=== PATIENT | female | born 1970 | race Caucasian/White ===

== ENCOUNTER → 2020-06-29 10:05 | Outpatient (REF) | payer OTHER, SELFPAY | LOC: ANHLAB 10:05 | PROVIDERS: PCP Family Medicine; Visit Provider Nurse Practitioner | DX: L57.0 Actinic keratosis (principal) | CPT/HCPCS: 88305 ==

== ENCOUNTER 2020-07-24 01:49 | Outpatient (CLI) | payer OTHER, SELFPAY ==
[2020-07-24 17:59] LABS: SARS-CoV-2 RNA PCR Negative
== END 2020-07-24 01:50 | disposition home or self-care (01) ==
LOC: ANHCOVIDDT 01:49
PROVIDERS: PCP Family Medicine; Visit Provider Surgery Plastic and Reconstructive Surgery
DX: Z01.812 Encounter for preprocedural laboratory examination (principal); Z20.828 Contact with and (suspected) exposure to other viral communicable diseases
CPT/HCPCS: 87635; C9803; U0003

== ENCOUNTER 2020-07-27 01:04 | Day surgery (SDC) | payer OTHER, SELFPAY ==
[2020-07-13 11:33] VITALS: BMI 29.8
--- NOTE | 2020-07-25 10:18 | WPDANESEPP ---
Anes - Eval Pre Procedure Procedure: Operation Date: 07/27/20 08:30 Proposed Procedures p Right Breast Fat Grafting - Manny Kirby MD Date/Time: 07/25/20 10:18 Pre Op Diagnosis: hx breast CA Patient Data Age: 49 Gender: F Height: 1.68 m Weight: 83.91 kg Allergies Allergy/AdvReac Type Severity Reaction Status Date / Time fluoxetine Allergy Unknown Palpitation Verified 07/13/20 12:49 s methylprednisolone Allergy Unknown SEVERE Verified 07/13/20 12:49 LOCAL REACTION TO IM, ZAIN. IV citalopram AdvReac Unknown CHEST Verified 07/13/20 12:49 PALPATIONS/EXACERBATES RA prednisone AdvReac Unknown CHEST Verified 07/13/20 12:49 PAIN/ HEART PALPATIONS-WITH PO ONLY Home Medications Medication Instructions Recorded Confirmed Type albuterol sulfate 90 mcg/actuation 1 puff INHALATION Q4H PRN 10/29/19 07/13/20 History aerosol inhaler oxycodone 10 mg tablet 10 mg PO Q6H PRN #90 tablet 02/17/20 07/13/20 Rx ondansetron HCl 4 mg tablet 4 mg PO Q8H PRN #20 tablet 03/23/20 07/13/20 Rx estradiol [Divigel] 1.25 mg TOPICAL DAILY 07/13/20 07/13/20 History hydroxychloroquine 200 mg PO QPM 07/13/20 07/13/20 History sulfasalazine 500 mg PO BID 07/13/20 07/13/20 History hydrocodone 5 mg-acetaminophen 325 1 tablet PO Q6H PRN #15 tablet 07/14/20 07/14/20 Rx mg tablet ondansetron HCl 4 mg tablet 4 mg PO Q6H PRN #30 tablet 07/14/20 Rx Patient hx anesthesia problems: none Family hx anesthesia problems: none PMFSH Past Medical History Medical History (Updated 07/25/20 @ 10:19 by Ciro Gallardo CRNA) Emphysema lung Surgical History Surgical History History of arthroscopic surgery of shoulder History of breast reconstruction History of hysterectomy History of tonsillectomy Family History Family History Grandparent Hypertension Family history of coronary artery disease Diabetes mellitus Mother Hypertension Family history of malignant neoplasm of thyroid Sibling Family history of diabetes mellitus in first degree relative Hypertension Father Family history of chronic obstructive pulmonary disease Social History Social History Smoking status: Never smoker Alcohol intake: never Spiritual care concerns: No Exam Day of Procedure 07/25/20 10:18
[2020-07-27] VITALS (8 sets, daily range): BP systolic 101–116; BP diastolic 53–66; PULSE 54–70; RESP 10–20; TEMP 36.1–36.5; O2SAT 98–100
--- NOTE | 2020-07-27 07:03 | WPDHPUPDATE1 ---
History and Physical Update Update Date/Time: 07/27/20 07:03 History and Physical has been reviewed, including an updated exam of the patient. There are NO changes in the patient's condition. Risks, benefits, and alternatives have been discussed and questions answered. Patient agrees to proceed with procedure.
[2020-07-27 07:15] LABS: Urine Cotinine NEGATIVE
[2020-07-27] MEDS: LACTATED RINGERS 1,000 ML 30 ML IV CONT ×2 (07:50→09:30)
--- NOTE | 2020-07-27 07:53 | WPDANESEPPF ---
Anes - Initial Pre Proc Eval Procedure: Operation Date: 07/27/20 08:30 Proposed Procedures p Right Breast Fat Grafting - Manny Kirby MD Date/Time: 07/27/20 07:53 Surgeon: Manny Kirby MD Pre Op Diagnosis: hx breast CA Patient Data Age: 49 Gender: F Height: 1.68 m Weight: 83.91 kg Allergies Allergy/AdvReac Type Severity Reaction Status Date / Time fluoxetine Allergy Unknown Palpitation Verified 07/13/20 12:49 s methylprednisolone Allergy Unknown SEVERE Verified 07/13/20 12:49 LOCAL REACTION TO IM, ZAIN. IV citalopram AdvReac Unknown CHEST Verified 07/13/20 12:49 PALPATIONS/EXACERBATES RA prednisone AdvReac Unknown CHEST Verified 07/13/20 12:49 PAIN/ HEART PALPATIONS-WITH PO ONLY Home Medications Medication Instructions Recorded Confirmed Type albuterol sulfate 90 mcg/actuation 1 puff INHALATION Q4H PRN 10/29/19 07/27/20 History aerosol inhaler oxycodone 10 mg tablet 10 mg PO Q6H PRN #90 tablet 02/17/20 07/27/20 Rx ondansetron HCl 4 mg tablet 4 mg PO Q8H PRN #20 tablet 03/23/20 07/27/20 Rx estradiol [Divigel] 1.25 mg TOPICAL DAILY 07/13/20 07/27/20 History hydroxychloroquine 200 mg PO QPM 07/13/20 07/27/20 History sulfasalazine 500 mg PO BID 07/13/20 07/27/20 History hydrocodone 5 mg-acetaminophen 325 1 tablet PO Q6H PRN #15 tablet 07/14/20 07/14/20 Rx mg tablet ondansetron HCl 4 mg tablet 4 mg PO Q6H PRN #30 tablet 07/14/20 Rx melatonin 30 mg PO HS PRN 07/27/20 07/27/20 History Laboratory Tests 07/27/20 06:58 Cotinine Negative Patient hx anesthesia problems: none Family hx anesthesia problems: none PMFSH Past Medical History Medical History (Updated 07/27/20 @ 07:54 by Clif Collier, ) Emphysema lung Frequent episodes of bronchitis GERD (gastroesophageal reflux disease) Rheumatoid arthritis Surgical History Surgical History History of arthroscopic surgery of shoulder History of breast reconstruction History of hysterectomy History of tonsillectomy Family History Family History Grandparent Hypertension Family history of coronary artery disease Diabetes mellitus Mother Hypertension Family history of malignant neoplasm of thyroid Sibling Family history of diabetes mellitus in first degree relative Hypertension Father Family history of chronic obstructive pulmonary disease Social History Social History Smoking status: Never smoker Alcohol intake: never Spiritual care concerns: No Anes - Eval Final PreProcedure Day of Procedure 07/27/20 07:53 Patient weight: overweight Heart: regular rate and rhythm Lungs: clear to auscultation and normal air movement Airway: Mallampati scale class II Neurological: alert and oriented Last oral intake: >/= 8 hours ASA classification: III Emergent: no Anesthetic plan: proceed Anesthesia type and monitoring: general LMA and standard monitoring Informed Consent: The patient's anesthetic plan and its attendant risks and benefits were discussed with the patient/family/POA. Questions were solicited and answers provided to the satisfaction of the patient/family/POA.
[2020-07-27] MEDS: SCOPOLAMINE 1.5 MG PATCH TRANSDERM (08:10)
[2020-07-27] MEDS: FAMOTIDINE 20 MG/2 ML VIAL IV PUSH (08:15)
[2020-07-27] MEDS: ceFAZolin 2 GM/D5W 50 ML 2 GM/50 ML BAG IVPB (08:32)
--- NOTE | 2020-07-27 09:39 | PM.PROC ---
Procedure Note - Detailed Date of procedure: 07/27/20 Pre-op diagnosis: hx breast CA Bilateral acquired breast deformity Post-op diagnosis: same Procedure performed: breast reconstruction by the method using fat grafting right breast Description of procedure: Risks, benefits, alternatives were discussed in extensive detail. I want her to be very realistic about the risks involved as well as expectations. She is wanting to address a small area that is got a significant depression on the right breast. After hearing her options she wants to proceed with fat grafting. She understands we will exchange the implant if there is any recur obvious injury. There is always the risk of unintentional injury to the implant we may have to return for another procedure for implant exchange and treatment if there was rupture of the implant. All questions answered to her satisfaction and consent obtained. She was marked in the preoperative holding area with her verification. She was taken to the operating room placed supine on the operating room table. Anesthesia provided by anesthesiology and prepped and draped in a standard sterile fashion. Surgical time-out was taken. Did a thorough abdominal examination. Using a 14 gauge needle and made a puncture site at her umbilicus. I tumesced with a tumescent solution. Once adequate time for hemostasis using a 3 mm multi hole cannulated completed suction lipectomy of this area for 250 cc into a gravity separation device. We gave adequate time for separation adipose tissue. I used a 14 gauge needle to make 2 stab incisions at the area that had been marked out on the breast. I infiltrated 18 cc of total volume adipose tissue which gave her a much improved contour in this area with an improved rolling pinch. There was no evidence of implant injury. Dressing was placed. She has taken the PACU without difficulty. All instrument sponge counts were correct at the end the case. Anesthesia: GLMA Surgeon: Manny Kirby MD Estimated blood loss (mL): 5 Drains: No Packing: No Pathology: none sent Complications: No immediate complications Condition: stable
[2020-07-27] MEDS: fentaNYL CITRATE INJ (*CRX) 100 MCG/2 ML VIAL 25 MCG IV PUSH ×3 (09:50→10:35)
[2020-07-27] MEDS: oxyCODONE HCL (*CRX) 5 MG TAB IR PO (10:45)
== END 2020-07-27 11:25 | disposition home or self-care (01) ==
PROVIDERS: PCP Family Medicine; Visit Provider Surgery Plastic and Reconstructive Surgery
PROC: (CPT 15769; principal; 2020-07-27 08:30)
DX: Z42.1 Encounter for breast reconstruction following mastectomy (principal); N64.89 Other specified disorders of breast; Z85.3 Personal history of malignant neoplasm of breast; Z98.82 Breast implant status; Z79.899 Other long term (current) drug therapy
CPT/HCPCS: 19366; 80307; A9270; C9290; J0171; J0690; J2250; J2370; J2405; J2704; J3010; J7120

== ENCOUNTER → 2023-02-05 14:10 | Outpatient (CLI) | payer OTHER, SELFPAY ==
--- NOTE | ~2023-02-05 | US_ITS ---
US thyroid INDICATION: Neck mass. TECHNIQUE: Real-time sonographic images of the thyroid gland were obtained. COMPARISON: Localized neck swelling. FINDINGS: The right thyroid lobe measures 4.2 x 1.7 x 1.5 cm. The left thyroid lobe measures 4 x 1.1 x 1.3 cm. There is normal echotexture and echogenicity throughout the thyroid gland. In the right lo be there is a 5 mm oval circumscribed hypoechoic mass which appears cystic, hypoechoic, wider than ta ll, smoothly marginated without punctate echogenic foci, TR 2, not suspicious. In the left lobe there is a 3 mm hypoechoic mass which is partially cystic, hypoechoic, wider than tall, smoothly marginate d without echogenic foci, TR 3, likely benign. Normal vascular flow is present. IMPRESSION: 1. Small bilateral thyroid nodules measuring 5 mm or less, likely benign. Reviewed, dictated and finalized at location A.
== END ==
PROVIDERS: PCP Family Medicine; Visit Provider Nurse Practitioner Family
DX: R22.1 Localized swelling, mass and lump, neck (principal); E04.2 Nontoxic multinodular goiter
CPT/HCPCS: 76536

== ENCOUNTER 2023-05-01 11:43 | Outpatient (CLI) | payer OTHER, SELFPAY ==
--- NOTE | ~2023-05-01 | XR_ITS ---
Clinical Indication: Shortness of breath PA and lateral views of the chest: Comparison: 02/18/2014 Findings: The lungs are clear, without evidence of focal consolidation or pleural effusion. Cardiome diastinal silhouette is within normal limits. Bones and soft tissues are unremarkable. Impression: Normal chest. Reviewed, dictated and finalized at [facility]. Impression: Normal chest.
== END 2023-05-01 11:44 | disposition home or self-care (01) ==
LOC: ANHIMG 11:45
PROVIDERS: PCP Family Medicine; Visit Provider Nurse Practitioner Family
DX: R06.02 Shortness of breath (principal)
CPT/HCPCS: 71046

== ENCOUNTER → 2023-08-17 12:41 | Outpatient (CLI) | payer OTHER, SELFPAY ==
--- NOTE | ~2023-08-17 | US_ITS ---
EXAMINATION: US thyroid DATE: 08/17/2023 13:15 INDICATION: Nontoxic single thyroid nodule. TECHNIQUE: Multiple ultrasound images of the thyroid were obtained. COMPARISON: Ultrasound 02/05/2023 FINDINGS: The right thyroid lobe measures 4.2 x 1.3 x 1.3 cm. The left thyroid lobe measures 4.3 x 1.1 x 1.3 c m. In the left thyroid lobe, there is a 3 mm nodule. In the right thyroid lobe, there is a 5 mm katty d, very hypoechoic, wider than tall nodule with smooth margin without echogenic foci (TI-RADS TR4). I n the right thyroid lobe, there is a 1 mm nodule. IMPRESSION: 1. Small thyroid nodules, likely not clinically significant. No follow-up is needed. Reviewed, dictated and finalized at location E. IMPRESSION: 1. Small thyroid nodules, likely not clinically significant. No follow-up is ne eded.
--- NOTE | ~2023-08-17 | US_ITS ---
US breast LT limited DATE: 08/17/2023 13:01 INDICATION: Palpable left breast lump at 2:00 10 cm from nipple. History of bilateral mastectomy with reconstruction, with second set of implants TECHNIQUE: Ultrasound at area of complaint at 2:00 10 cm from nipple COMPARISON: None FINDINGS: Left breast implant is noted. No suspicious mass or shadowing is detected at the area of cl inical complaint at 2:00 10 cm from nipple. IMPRESSION: Negative BI-RADS Category 1: Negative Reviewed, dictated and finalized at Location [facility]. Reviewed, dictated and finalized at location A.
== END ==
PROVIDERS: PCP Nurse Practitioner Family; Visit Provider Nurse Practitioner Family
DX: E04.2 Nontoxic multinodular goiter (principal); N63.20 Unspecified lump in the left breast, unspecified quadrant; R92.8 Other abnormal and inconclusive findings on diagnostic imaging of breast; Z90.13 Acquired absence of bilateral breasts and nipples
CPT/HCPCS: 76536; 76642

== ENCOUNTER 2023-11-21 10:49 | Outpatient (CLI) | payer OTHER, SELFPAY ==
--- NOTE | 2023-11-21 11:01 | ECG_ITS ---
Measurements Intervals [employer] Rate: 75 P: 65 DC: 203 QRS: 64 QRSD: 89 T: 36 QT: 389 QTc: 436 Interpretive Statements SINUS RHYTHM WITH SINUS ARRHYTHMIA NORMAL ECG NO PREVIOUS ECG AVAILABLE FOR COMPARISON Electronically Signed On 11-21-2023 11:10:52 FRONT TENDER by Altaf Oliva D.O.
== END 2023-11-21 10:50 | disposition home or self-care (01) ==
LOC: ANHCARD 10:51
PROVIDERS: PCP Family Medicine; Visit Provider Nurse Practitioner Family
DX: R07.9 Chest pain, unspecified (principal)
CPT/HCPCS: 93005

== ENCOUNTER 2024-02-07 09:53 | Outpatient (CLI) | payer OTHER, SELFPAY ==
--- NOTE | ~2024-02-07 | MR_ITS ---
MR breast BI wo/w con, MR breast BI wo/w con 02/08/2024 14:08 CDT INDICATION: Mass by clinical examination. Breast implants. History of breast cancer status post recon struction surgery. TECHNIQUE: MRI of the breasts perform using standard protocol pre-and post IV contrast with the follo wing sequences: Axial T2 STIR, axial T1, axial vibrant T1 with fat suppression precontrast and multip hasic postcontrast. 14 cc MultiHance administered intravenously. COMPARISON: Left breast ultrasound dated 08/17/2023 FINDINGS: There are no abnormalities on the precontrast sequences. There is mild background parenchym al enhancement. No enhancing lesions following contrast administration. No areas of enhancement kalyan ting threshold criteria on CAD analysis. No evidence of signal abnormalities in the axillary or inte rnal mammary node distributions. LEFT BREAST: No signal abnormalities on precontrast sequences. There is mild background parenchymal enhancement. No enhancing lesions following contrast administration. No areas of enhancement meeti ng threshold criteria on CAD analysis. No evidence of signal abnormalities in the axillary or inter nal mammary node distributions.] There are bilateral silicone implants. There is subcapsular line sign present along the lateral joya n of the right breast implant, consistent with intracapsular implant rupture. No evidence for left br east implant rupture. IMPRESSION: 1: Right breast: Negative. No evidence of malignancy. BI-RADS category 1. Recommend annual mammo graphy follow-up. 2: Left breast: Negative. No evidence of malignancy. BI-RADS category 1. Recommend annual mammogr aphy follow-up. 3: Probable intracapsular implant rupture of the right breast implant. No evidence for extracapsular rupture. Follow-up MRI may be useful for supplementing mammographic evaluation as clinically indicated. Reviewed, dictated and finalized at location B. IMPRESSION: 1: Right breast: Negative. No evidence of malignancy. BI-RADS category 1. Recommend annual mammography follow-up. 2: Left breast: Negative. No evidence of malignancy. BI-RADS category 1. Re commend annual mammography follow-up. 3: Probable intracapsular implant rupture of the right breast implant. No evide nce for extracapsular rupture. Follow-up MRI may be useful for supplementing mammographic evaluation as clinic ally indicated.
== END 2024-02-07 09:54 | disposition home or self-care (01) ==
PROVIDERS: PCP Family Medicine; Visit Provider Surgery Plastic and Reconstructive Surgery
DX: N63.10 Unspecified lump in the right breast, unspecified quadrant (principal); N63.20 Unspecified lump in the left breast, unspecified quadrant; Z98.82 Breast implant status; Z85.3 Personal history of malignant neoplasm of breast
CPT/HCPCS: 77049; A9577; C8908

== ENCOUNTER 2024-02-08 11:29 | Outpatient (CLI) | payer OTHER, SELFPAY | END 2024-02-08 11:30 | disposition home or self-care (01) | PROVIDERS: PCP Family Medicine; Visit Provider Surgery Plastic and Reconstructive Surgery | DX: N63.0 Unspecified lump in unspecified breast (principal) | CPT/HCPCS: 99199; 77049; C8908 ==

== ENCOUNTER 2024-04-23 02:56 | Day surgery (SDC) | payer OTHER, SELFPAY ==
[2024-04-17 15:11] VITALS: BMI 27.0
--- NOTE | 2024-04-17 15:18 | PC.NURSE ---
Report to the Outpatient Waiting Room, entrance under the green pavilion located off [facility], at time _0715_ on date _[id number]_. Planned Procedure Time: _0915_. Time changes happen often and if your time is changed the preop area will call you the afternoon before. - You and your visitor will be asked to self-screen and do not enter if you have any COVID symptoms. - A mask is optional within the hospital at this time. - No food or drink from midnight until time of surgery Take the following medications with a SIP of water the morning of surgery: ___Gabapentin and if needed pain medication DO NOT STOP ANY OF YOUR OTHER PRESCRIPTION MEDICATIONS PRIOR TO SURGERY ?EXCEPT THE FOLLOWING Medications to discontinue per physician __Ozempic Date to take last dose__Skip today's dose until after surgery. Please no make-up, nail croatian, hairspray, perfume, deodorant, or body powder the day of surgery. No jewelry (including any body piercings) or valuables the day of surgery, leave them at home. Please take a shower or bath the night before, or the morning of, surgery with an antibacterial soap. Wear comfortable, loose fitting clothing. - Jewelry must be removed prior to entering the operating room. Rings and piercings that are not removed may be cut off. - The hospital will not accept responsibility for valuables. - Please leave all valuables, including medications, at home the day of surgery. If you are going home after surgery, a licensed septic pump truck driver must drive you home. - NO public transportation without another adult if you receive anesthesia. - We recommend that an adult stay with you for 24 hours following discharge. - We also recommend that you do not drive, make important decision, drink alcoholic beverages, or take any drugs that were not prescribed by your health care provider for at least 24 hours after your discharge time. Follow any additional instructions given to you from your surgeon. If you or anyone in your household have experienced Covid symptoms in the past week, please notify your surgeon or the nurse liaison at the phone number below for possible testing. Telephone instructions given to _Nora__and asked if any additional questions and then verbalized understanding. Patient advised to call surgeon office or pre surgery nurse liaison [phone] if any additional questions.
[2024-04-23] VITALS (10 sets, daily range): BP systolic 95–137; BP diastolic 49–68; PULSE 60–87; RESP 15–23; TEMP 35.9–37.3; O2SAT 95–100
--- NOTE | 2024-04-23 06:56 | WPDHPUPDATE1 ---
History and Physical Update Update Date/Time: 04/23/24 06:56 Patient seen and examined in pre-operative holding area. No interval change in medical history or symptoms. Patient recalls previous discussion of benefits and alternatives to procedure. Continues to desire to proceed with bilateral breast silicone implant exchange, capsulectomy and left breast mass excision. Reviewed procedure, post-op expectations and risks including but not limited to bleeding, infection, injury to tendon/nerve/vessel, decreased hand function, stiffness, RSD, no change or worsening of symptoms, device failure, capsular contracture. I discussed the possible use of assistants and their participation in the case. Patient stated understanding and signed the consent form wishing to proceed.
--- NOTE | 2024-04-23 06:57 | W.PM.PROC2 ---
Procedure Note - Detailed Date of Procedure 04/23/24 Pre-op Diagnosis acquored absence bilateral breasts. complication right breast implant Post-op Diagnosis Same Procedure Performed bilateral breast implant exchange, bilateral capsulectomy and left breast mass excision Surgeon Hakeem Valenzuela MD Anesthesia General Description of Procedure Patient was seen in the preoperative holding area where the breasts were marked consent form signed. She was taken back to the operating room placed on the table in a supine position. Time-out was performed with Anesthesia, surgeon, and staff agree on patient's name, site, and surgery to be performed. SCDs were placed on the lower extremities and inflated. Antibiotics were given IV. After general anesthesia was administered the breasts were prepped and draped in usual sterile fashion. I took my attention 1st to the right breast where I used a 15 blade scalpel to make an incision around her previous supra-areolar incision scar and going around at the area of thinned skin laterally in an ellipse. This was done through skin and dermis. Bovie cautery was then used to resect this painful scar and area of tissue going down to the breast capsule. Once reaching the breast capsule I proceeded with dissection with Bovie cautery superior and inferior to elevate skin flaps and prevent direct line scar. I proceeded with making an incision in the capsule with Bovie cautery. I removed the right breast implantWhich appeared intact. Lighted retractors were used to examine the capsule and a large part thickened irregular capsule was noted along the chest wall lateral breast cavity. I proceeded with performing capsulectomy right breast and sent this specimen to pathology. I irrigated with antibiotic irrigation hemostasis with Bovie cautery. Using a 2-0 Vicryl I performed capsulorrhaphy on this lateral aspect of the capsule to also help narrow the pocket. No further masses or irregularities were appreciated. next I took my attention to the left breast. I proceeded with making an elliptical incision around her previous mastectomy scar the lateral aspect of the breast through skin and dermis with a 15 blade scalpel. The scar was excised. I used Bovie cautery to dissect through subcutaneous tissue down to the breast capsule I elevated superiorly on the capsule to prevent a direct line scar. I made an incision capsule and removed the left breast implant which appeared intact. Using lighted retractors I proceeded with triangulating the palpable tender left breast mass in the upper outer quadrant. this appeared to be abutting the capsule. I proceeded with using Bovie cautery to excise this portion of thickened capsule in the superior lateral quadrant and then continued with dissection around the suspected palpable mass in the subcutaneous tissue.. After this was completed I irrigated with antibiotic solution and hemostasis with Bovie cautery. I repaired this capsular defect with 2-0 Vicryl suture. Further inspection noted significantly hard and calcified appearing capsule on the inferior aspect of the left breast pocket. I proceeded with extensive capsulectomy of this irregular capsular tissue. This was sent to pathology. Next I irrigated with antibiotic irrigation. Examination with lighted retractors noted no further masses or areas of concern. I proceeded with placing a temporary 800 cc Sizer which appeared to be an adequate replacement to her previously removed implant. it was noted that her right breast subcutaneous tissue did appear to be occur as well as her pectoralis major muscle and I proceeded with placing a 770 cc Sizer on the right breast. This had reasonable symmetry though the right breast was still notably wider due to this implant size And the excess tissue on the right breast. Next I proceeded with placing the implant on the left breast. The Sizer was removed. I irrigated with antibiotic irrigat
[2024-04-23] MEDS: LACTATED RINGERS 1,000 ML 30 ML IV CONT ×2 (07:55→10:51)
--- NOTE | 2024-04-23 08:38 | WPDANESEPPF ---
Anes - Initial Pre Proc Eval Procedure: Operation Date: 04/23/24 09:15 Proposed Procedures p Bilateral Breast Implant Exchange, Right Breast Capsulectomy, Left Breast Mass Excision - Hakeem Valenzuela MD Date/Time: 04/23/24 08:38 Surgeon: Hakeem Valenzuela MD Pre Op Diagnosis: left breast mass,acquired absence breast &nipple Patient Data Age: 53 Gender: F Height: 1.68 m Weight: 76.5 kg Last Vital Signs Temp 36.4 C 04/23/24 08:03 Pulse 76 04/23/24 08:03 Resp 16 04/23/24 08:03 BP 106/49 L 04/23/24 08:03 Pulse Ox 98 04/23/24 08:03 O2 Del Method Room Air 04/23/24 08:03 Allergies Allergy/AdvReac Type Severity Reaction Status Date / Time fluoxetine Allergy Unknown Palpitation Verified 04/23/24 07:54 s methylprednisolone Allergy Unknown SEVERE Verified 04/23/24 07:54 LOCAL REACTION TO IM, ZAIN. IV citalopram AdvReac Unknown CHEST Verified 04/23/24 07:54 PALPATIONS/EXACERBATES RA prednisone AdvReac Unknown CHEST Verified 04/23/24 07:54 PAIN/ HEART PALPATIONS-WITH PO ONLY Home Medications Medication Instructions Recorded Confirmed Type diphenhydramine HCl 25 mg tablet 25 mg PO QHS PRN Insomnia 10/18/22 04/17/24 History (Benadryl Allergy) semaglutide 2 mg/dose (8 mg/3 mL) 2 mg subcut WEEKLY 07/31/23 04/17/24 History subcutaneous pen injector (Ozempic) albuterol sulfate 90 mcg/actuation 1 puff inhalation Q4H PRN 12/01/23 04/17/24 Rx aerosol inhaler Shortness Of Breath #8.5 grams hydroxyzine HCl 50 mg tablet 50 mg PO BID PRN itching #60 tabs 02/28/24 04/17/24 Rx melatonin 10 mg tablet 30 mg PO HS PRN Insomnia #60 tabs 02/28/24 04/17/24 Rx ondansetron HCl 4 mg tablet 4 mg PO Q6H PRN nausea and 02/28/24 04/17/24 Rx vomiting #30 tabs gabapentin 300 mg capsule 300 mg PO TID #90 caps 03/26/24 04/17/24 Rx oxycodone 10 mg tablet 10 mg PO Q8H PRN pain #90 tabs 03/31/24 04/17/24 Rx Patient hx anesthesia problems: other (heartburn) Family hx anesthesia problems: post op nausea/vomiting Results Review: All pre-operative results and documents have been reviewed as part of the pre-operative evaluation. COUNTS INCLUDE 234 BEDS AT THE [facility] Past Medical History Medical History Autoimmune dermatitis BMI 25.0-25.9,adult COVID-19 Emphysema lung Frequent episodes of bronchitis GERD (gastroesophageal reflux disease) Rheumatoid arthritis Surgical History Surgical History History of arthroscopic surgery of shoulder History of breast reconstruction History of hysterectomy History of knee surgery History of tonsillectomy Family History Family History Grandparent Hypertension Family history of coronary artery disease Diabetes mellitus Mother Hypertension Family history of malignant neoplasm of thyroid Diabetes mellitus Parkinson's disease Alzheimer's dementia Sibling Family history of diabetes mellitus in first degree relative Hypertension Diabetes mellitus Rheumatoid arthritis Diverticulitis History of kidney cancer Father Family history of chronic obstructive pulmonary disease Acute myocardial infarction Diabetes mellitus Hypertension Social History Social History Smoking status: Never smoker Second hand tobacco smoke exposure: Yes Alcohol intake: never Substance use: never Substance use type: does not use Do You Feel Safe in your Home?: Yes Lack of Transportation: No Lack of Food: Never True Current Housing: I Have Housing Concerned About Future Housing: No Difficulty Paying Gas/Electric Bills: No Difficulty Paying for Meds: No Currently Unemployed: No Education: Bachelor's Degree Difficulty w/ Childcare or Family Care: No Living arrangements: with
[2024-04-23] MEDS: NACL 0.9% IRRIG POUR BOTTLE 1,000 ML, GENTAMICIN SULFATE INJ 160 MG, ceFAZolin 2 GM IRRIGATION (08:48)
[2024-04-23] MEDS: ceFAZolin 2 GM/D5W 50 ML 2 GM/50 ML BAG IVPB (09:06)
--- NOTE | 2024-04-23 10:58 | SUR.OPER ---
Dr. Valenzuela Requested that both removed breast implants be sent to pathology. [facility].
[2024-04-23] MEDS: fentaNYL CITRATE INJ (*CRX) 100 MCG/2 ML VIAL 25 MCG IV PUSH ×8 (11:29→11:55)
[2024-04-23] MEDS: oxyCODONE HCL (*CRX) 5 MG TAB IR PO (12:23)
== END 2024-04-23 12:55 | disposition home or self-care (01) ==
PROVIDERS: PCP Family Medicine; Visit Provider Plastic Surgery
PROC: (CPT 19342; principal; 2024-04-23 09:15)
DX: N63.21 Unspecified lump in the left breast, upper outer quadrant (principal); N65.0 Deformity of reconstructed breast; Z90.10 Acquired absence of unspecified breast and nipple; Z85.3 Personal history of malignant neoplasm of breast; I10 Essential (primary) hypertension; J43.9 Emphysema, unspecified; M06.9 Rheumatoid arthritis, unspecified; K21.9 Gastro-esophageal reflux disease without esophagitis; Z90.13 Acquired absence of bilateral breasts and nipples; L90.5 Scar conditions and fibrosis of skin; Z79.85 Long-term (current) use of injectable non-insulin antidiabetic drugs; Z79.51 Long term (current) use of inhaled steroids
CPT/HCPCS: 19371; 19342; 19120; 88300; 88304; 88305; 88307; A9270; J0690; J1580; J2250; J2371; J2405; J2704; J3010; J7030; J7120

== ENCOUNTER 2025-04-28 11:34 | Outpatient (CLI) | payer OTHER, SELFPAY ==
--- NOTE | ~2025-04-28 | US_ITS ---
EXAM: Focused ultrasound examination of the soft tissues of the left axilla HISTORY: lump in left axilla . 54-year-old woman presents with the following history: bilateral mastectomy for fibrocystic disease i 2007 with reconstruction, subsequent fat grafting and implant exchange on 12/03/2018, followed by a second bilateral implant removal and replacement with capsulectomy and capsulorrhaphy on 04/23/2024. She presents for further evaluation of a palpable abnormality within the left axilla. TECHNIQUE: Sonographic evaluation of the soft tissues of the left axilla corresponding to the area of palpable concern were performed assessing grayscale appearance and color Doppler flow. COMPARISON: None. FINDINGS: Within the area of palpable concern is a oval shaped focus of mixed echogenicity (isoechoic to hypere choic) measuring 34 x 9 x 31 mm for which a benign lipoma is suspected. Additionally, within the area of palpable concern is a reniform shaped focus of decreased echogenicit y measuring 25 x 7 x 15 mm (7 mm in short axis dimension) for which a morphologically benign, nonpath ologically enlarged lymph node is demonstrated. Sonographic evaluation of the remainder of the soft tissues of the left axilla otherwise demonstrate benign fibrofatty and fibromuscular elements without a cystic or solid lesion of concern. IMPRESSION: Findings within the left axilla for which a morphologically benign, nonpathologically enlarged lymph node is present. Additional findings a lipoma is suspected. Contrast enhanced dynamic Breast MRI (not breast implant protocol) may be performed for confirmation of the benignity of the findings within the left axilla. BI-RADS Category 2: Benign findings. Follow-up with contrast-enhanced dynamic breast MRI (NOT breast implant protocol) may be performed, i f the patient is clinically able. If the patient is unable to undergo MRI, short-term follow-up ultrasound is recommended. Reviewed, dictated and finalized at location A. IMPRESSION: Findings within the left axilla for which a morphologically benign, nonpatholog ically enlarged lymph node is present. Additional findings a lipoma is suspected. Contrast enhanced dynamic Breast MRI (not breast implant protocol) may be perfo rmed for confirmation of the benignity of the findings within the left axilla. BI-RADS Category 2: Benign findings. Follow-up with contrast-enhanced dynamic breast MRI (NOT breast implant protoco l) may be performed, if the patient is clinically able. If the patient is unable to undergo MRI, short-term follow-up ultrasound is rec ommended.
--- NOTE | ~2025-04-28 | US_ITS ---
EXAMINATION: US thyroid DATE: 04/28/2025 12:12 INDICATION: Family history of thyroid cancer TECHNIQUE: Multiple ultrasound images of the thyroid were obtained. COMPARISON: 08/17/2023 FINDINGS: The right thyroid lobe measures 4.3 x 1.7 x 1.4 cm. The left thyroid lobe measures 4.5 x 1.2 x 1.4 cm. Within the upper pole of the left lobe of the thyroid gland is a 2.5 x 1.3 x 2.8 mm nodule: Composition - spongiform Echogenicity - hypoechoic (2) Shape - wider than tall Margin - smooth Echogenic foci - none. = TR2 not suspicious. The isthmus measures 0.2cm in anterior to posterior dimension. There is otherwise normal echotexture and echogenicity throughout the remainder of the thyroid gland. No discrete suspicious nodules identified. Normal vascular flow is present. IMPRESSION: TR2 nodule in the left lobe of the thyroid gland measuring 2.8 mm in greatest dimension. This nodule is not sonographically suspicious and no FNA or follow-up is recommended While follow-up is not recommended (as per TIRADs criteria) it may be performed, at the discretion of the referring clinician. Reviewed, dictated and finalized at location A. IMPRESSION: TR2 nodule in the left lobe of the thyroid gland measuring 2.8 mm in greatest d imension. This nodule is not sonographically suspicious and no FNA or follow-up is recomm ended While follow-up is not recommended (as per TIRADs criteria) it may be performed , at the discretion of the referring clinician.
== END 2025-04-28 11:35 | disposition home or self-care (01) ==
LOC: MICIMG 11:36
PROVIDERS: PCP Family Medicine
DX: E04.1 Nontoxic single thyroid nodule (principal); N63.32 Unspecified lump in axillary tail of the left breast
CPT/HCPCS: 76536; 76882